=== PATIENT | female | born 1990 | race African-American/Black ===

== ENCOUNTER 2019-10-16 22:59 | Emergency (ER) | payer BC ==
[~2019-10-16] VITALS: Ht 152.4 cm; Wt 68.0 kg
[2019-10-16 23:03] VITALS: BP 119/69
== END 2019-10-17 00:24 | disposition home or self-care (01) ==
LOC: ER 22:59
DX: S01.112A Laceration without foreign body of left eyelid and periocular area, initial encounter (principal); Y08.89XA Assault by other specified means, initial encounter; Y93.89 Activity, other specified; Y92.89 Other specified places as the place of occurrence of the external cause; Y99.8 Other external cause status

== ENCOUNTER 2019-10-22 14:11 | Emergency (ER) | payer BC ==
[~2019-10-22] VITALS: Ht 170.2 cm; Wt 56.7 kg
[2019-10-22 14:19] VITALS: BP 118/60
== END 2019-10-22 14:44 | disposition home or self-care (01) ==
LOC: ER 14:11
DX: S01.111D Laceration without foreign body of right eyelid and periocular area, subsequent encounter (principal); Y04.2XXD Assault by strike against or bumped into by another person, subsequent encounter

== ENCOUNTER 2020-03-02 21:57 | Emergency (ER) | payer BC ==
[~2020-03-02] VITALS: Ht 162.6 cm; Wt 49.9 kg
[2020-03-02 22:10] VITALS: BP 129/59
[2020-03-02] MEDS ORDERED: BACTRIM DS TAB1 EACH PO (22:25)
== END 2020-03-02 22:29 | disposition home or self-care (01) ==
LOC: ER 21:57
DX: S90.561A Insect bite (nonvenomous), right ankle, initial encounter (principal); L03.115 Cellulitis of right lower limb; W57.XXXA Bitten or stung by nonvenomous insect and other nonvenomous arthropods, initial encounter; Y93.89 Activity, other specified; Y92.89 Other specified places as the place of occurrence of the external cause; Y99.8 Other external cause status

== ENCOUNTER 2020-09-08 11:08 | Emergency (ER) | payer BC ==
[~2020-09-08] VITALS: Ht 152.4 cm; Wt 61.2 kg
[~2020-09-08 11:08] MED LIST: BACTRIM DS TAB1 EACH PO
[2020-09-08 12:14] VITALS: BP 113/68
== END 2020-09-08 12:15 | disposition home or self-care (01) ==
LOC: ER 11:08
DX: S00.03XA Contusion of scalp, initial encounter (principal); Y04.2XXA Assault by strike against or bumped into by another person, initial encounter; Y93.89 Activity, other specified; Y92.89 Other specified places as the place of occurrence of the external cause; Y99.8 Other external cause status